=== PATIENT | female | born 1950 | race Caucasian/White ===

== ENCOUNTER 2018-07-11 03:22 | Emergency (ER) | payer MEDICARE ==
[~2018-07-11] VITALS: Ht 152.4 cm; Wt 77.2 kg
[~2018-07-11 03:22] MED LIST: GUAI120015 PO
[2018-07-11] MEDS ORDERED: methylPREDNISolone sod succ 125mg/2ml vial IV ONE (03:35)
[2018-07-11] MEDS ORDERED: ipratropium/albuterol 3ml nebule NEB ONE (03:35)
[2018-07-11 04:14] LABS: BASOPHILS # (AUTO) 0.1 X10'3 (0-0.2); BASOPHILS % (AUTO) 1.1 % (0-1); EOSINOPHILS # (AUTO) 0.9 X10'3 (0-0.9); EOSINOPHILS % (AUTO) 10.1 % (0-6); HEMATOCRIT 41.7 % (35.0-45.0); HEMOGLOBIN 13.7 g/dl (12.0-16.0); LYMPHOCYTES # (AUTO) 2.8 X10'3 (1.1-4.8); MEAN CORPUSCULAR HEMOGLOBIN 28.4 PG (27.0-31.0); MEAN CORPUSCULAR HGB CONC 32.8 g/dL (33.0-36.5); MEAN CORPUSCULAR VOLUME 86.5 FL (78-98); MONOCYTES # (AUTO) 0.7 X10'3 (0-0.9); MONOCYTES % (AUTO) 7.6 % (2-12); NEUTROPHILS # (AUTO) 4.8 X10'3 (1.8-7.7); NEUTROPHILS % (AUTO) 51.2 % (42-75); PLATELET COUNT 325 X10'3 (140-440); RED BLOOD COUNT 4.82 X10'6 (4.20-5.60); RED CELL DISTRIBUTION WIDTH 14.4 % (11.5-14.5); WHITE BLOOD COUNT 9.4 X10'3 (4.5-11.0)
[2018-07-11 04:26] LABS: ALANINE AMINOTRANSFERASE 18 U/L (12-78); ALBUMIN 3.5 G/DL (3.4-5.0); ALKALINE PHOSPHATASE 81 IU/L (46-116); ANION GAP 9 (8-16); ASPARTATE AMINO TRANSFERASE 20 U/L (10-37); BILIRUBIN,TOTAL 0.4 MG/DL (0.1-1.0); BLOOD UREA NITROGEN 17 MG/DL (7-18); BUN/CREATININE RATIO 24.3 (6.6-38.0); CALCIUM 9.1 MG/DL (8.5-10.1); CHLORIDE 106 MMOL/L (99-107); GLUCOSE 98 MG/DL (70-104); POTASSIUM 4.1 MMOL/L (3.5-5.1); SODIUM 140 MMOL/L (135-145); eGFR 84 ML/MIN
[2018-07-11 04:28] LABS: PARTIAL THROMBOPLASTIN TIME 28 SECONDS (22-32); PROTHROMBIN TIME 10.5 SECONDS (9.0-12.0)
[2018-07-11 04:35] LABS: TROPONIN I < 0.04 NG/ML (0.0-0.05)
[2018-07-11 04:52] VITALS: BP 132/77
[2018-07-11] MEDS ORDERED: LEVO750T21 PO (04:57)
[2018-07-11] MEDS ORDERED: PRED20TA PO (04:57)
== END 2018-07-11 05:16 | disposition home or self-care (01) ==
LOC: ER 03:22
DX: J44.1 Chronic obstructive pulmonary disease with (acute) exacerbation (principal); Z87.891 Personal history of nicotine dependence
CPT/HCPCS: 36415; 71045; 80053; 83880; 84484; 85025; 85610; 85730; 93005; 94640; 94760; 96374; 99284; J2930

== ENCOUNTER 2018-09-17 20:37 | Emergency (ER) | payer MEDICARE ==
[~2018-09-17] VITALS: Ht 152.4 cm; Wt 79.2 kg
[2018-09-17] MEDS ORDERED: methylPREDNISolone sod succ 125mg/2ml vial IV ONE (21:10)
[2018-09-17] MEDS ORDERED: ipratropium/albuterol 3ml nebule NEB ONE ×2 (21:10→22:30)
[2018-09-17 21:36] LABS: BASOPHILS % (AUTO) 0.5 % (0-1); EOSINOPHILS % (AUTO) 0 % (0-6); HEMATOCRIT 40.5 % (35.0-45.0); HEMOGLOBIN 13.8 g/dl (12.0-16.0); LYMPHOCYTES # (AUTO) 1.1 X10'3 (1.1-4.8); LYMPHOCYTES % (AUTO) 11.9 % (21-51); MEAN CORPUSCULAR HEMOGLOBIN 29.8 PG (27.0-31.0); MEAN CORPUSCULAR VOLUME 87.6 FL (78-98); MEAN PLATELET VOLUME 9.1 FL (7.4-10.4); MONOCYTES # (AUTO) 0.2 X10'3 (0-0.9); MONOCYTES % (AUTO) 2.2 % (2-12); NEUTROPHILS # (AUTO) 7.6 X10'3 (1.8-7.7); NEUTROPHILS % (AUTO) 85.4 % (42-75); PLATELET COUNT 238 X10'3 (140-440); RED BLOOD COUNT 4.62 X10'6 (4.20-5.60); RED CELL DISTRIBUTION WIDTH 15.4 % (11.5-14.5); WHITE BLOOD COUNT 8.9 X10'3 (4.5-11.0)
[2018-09-17 21:41] LABS: ALANINE AMINOTRANSFERASE 23 U/L (12-78); ALBUMIN 3.7 G/DL (3.4-5.0); ALBUMIN/GLOBULIN RATIO 1.1 (1.1-1.5); ALKALINE PHOSPHATASE 66 IU/L (46-116); ANION GAP 13 (8-16); ASPARTATE AMINO TRANSFERASE 16 U/L (10-37); BILIRUBIN,TOTAL 0.3 MG/DL (0.1-1.0); BLOOD UREA NITROGEN 14 MG/DL (7-18); BUN/CREATININE RATIO 19.2 (6.6-38.0); CALCIUM 9.2 MG/DL (8.5-10.1); CHLORIDE 107 MMOL/L (99-107); CREATININE 0.73 MG/DL (0.40-0.90); GLUCOSE 120 MG/DL (70-104); POTASSIUM 4.3 MMOL/L (3.5-5.1); SODIUM 140 MMOL/L (135-145); TOTAL CARBON DIOXIDE 19.8 MMOL/L (24-32); TOTAL PROTEIN 7.1 G/DL (6.4-8.2); eGFR 80 ML/MIN
[2018-09-17 21:42] LABS: PARTIAL THROMBOPLASTIN TIME 28 SECONDS (22-32)
[2018-09-17 23:35] VITALS: BP 171/103
[2018-09-19] MEDS ORDERED: GUAI400T77 PO (13:04)
[2018-09-19] MEDS ORDERED: NAPR-996 PO (13:04)
[2018-09-19] MEDS ORDERED: BUPR300T54 PO (13:04)
[2018-09-19] MEDS ORDERED: UMEC1DIS INH (13:04)
[2018-09-19] MEDS ORDERED: ASPI-1265 PO (13:04)
[2018-09-19] MEDS ORDERED: IPRA3AMP31 NEB (13:04)
[2018-09-19] MEDS ORDERED: CALC-3 PO (13:04)
[2018-09-19] MEDS ORDERED: ALEN70TA13 PO (13:04)
[2018-09-19] MEDS ORDERED: FLUT100D2 INH (13:04)
[2018-09-19] MEDS ORDERED: ATOR20TA66 PO (13:04)
== END 2018-09-17 23:42 | disposition home or self-care (01) ==
LOC: ER 20:38
DX: J44.1 Chronic obstructive pulmonary disease with (acute) exacerbation (principal); F17.210 Nicotine dependence, cigarettes, uncomplicated; Z79.899 Other long term (current) drug therapy; Z98.890 Other specified postprocedural states
CPT/HCPCS: 36415; 71045; 80053; 83880; 84484; 85025; 85610; 85730; 93005; 94640; 94760; 96374; 99284; J2930

== ENCOUNTER 2018-09-19 11:04 | Inpatient (IN) | payer MEDICARE | END 2018-09-21 17:15 | disposition home or self-care (01) | LOC: ER 11:04 → PCU 3S 23:31 → SUR 3N 09-20 13:45 | DX: J44.1 Chronic obstructive pulmonary disease with (acute) exacerbation (principal); J18.9 Pneumonia, unspecified organism; J44.0 Chronic obstructive pulmonary disease with (acute) lower respiratory infection; E78.5 Hyperlipidemia, unspecified; R01.1 Cardiac murmur, unspecified; M81.0 Age-related osteoporosis without current pathological fracture; F32.9 Major depressive disorder, single episode, unspecified; K29.70 Gastritis, unspecified, without bleeding ==

== ENCOUNTER 2019-01-22 15:40 | Emergency (ER) | payer MEDICARE ==
[~2019-01-22] VITALS: Ht 152.4 cm; Wt 86.4 kg
[~2019-01-22 15:40] MED LIST changes: +ALEN70TA13 PO; +ATOR20TA66 PO; +AZI25OT PO; +BUPR300T54 PO; +CALC-3 PO; +FLUT100D2 INH; +FURO20TA4 PO; -GUAI120015 PO; +GUAI400T77 PO; +UMEC1DIS INH
--- NOTE | 2019-01-22 16:31 | NUR ---
awaiting ed MD.
[2019-01-22] MEDS ORDERED: ipratropium/albuterol 3ml nebule NEB ONE (16:55)
[2019-01-22 17:04] VITALS: BP 125/74
[2019-01-22] MEDS ORDERED: PRED20TA PO (17:27)
== END 2019-01-22 17:39 | disposition home or self-care (01) ==
LOC: ER 15:41
DX: J44.9 Chronic obstructive pulmonary disease, unspecified (principal); Z98.890 Other specified postprocedural states; Z79.2 Long term (current) use of antibiotics; Z79.899 Other long term (current) drug therapy
CPT/HCPCS: 71046; 94640; 94760; 99283

== ENCOUNTER 2024-10-14 23:49 | Emergency (ER) | payer MEDICARE, MEDICAID ==
[~2024-10-14] VITALS: Ht 152.4 cm; Wt 86.0 kg
[~2024-10-14 23:49] MED LIST changes: -ALEN70TA13 PO; +ALEN70TA80 PO; +BUPR-557 PO; -BUPR300T54 PO; -GUAI400T77 PO; +GUAI400T92 PO
[2024-10-15] MEDS: diphenhydrAMINE 25mg capsule PO ONE ×2 (00:10→01:49)
[2024-10-15] MEDS: dexamethasone sod phosphate 10mg/ml inj IM STA (00:51)
[2024-10-15] MEDS: famotidine 20mg tablet PO ONE (00:51)
--- NOTE | 2024-10-15 01:21 | Physician Documentation ---
History of Present Illness ~ Chief Complaint: Rash Stated Complaint: RASH Time Seen by MD: 01:20 Primary Medical Doctor: [facility] HPI 73-year-old female presenting with a rash. She tells me that earlier today she developed a rash. It is itchy and red, and on her trunk and extremities. She has been taking amoxicillin for strep throat for the past 1 week. No other definite new exposures including new soaps, lotions or foods. No allergies. No treatments tried at home. She denies any swelling or lesions in her mouth. No difficulty breathing or wheezing. No difficulty swallowing, nausea vomiting or diarrhea. No lightheadedness or syncope. Medication Reconciliation Allergies: Coded Allergies: amoxicillin (Verified Allergy, Mild, RASH, 10/15/24) Scheduled Alendronate Sodium (Alendronate Sodium), 1 TABLET PO Q7D, (Reported) Atorvastatin Calcium (Atorvastatin Calcium), 1 TAB PO HS, (Reported) Azithromycin (Zithromax), 500 MG PO Q24H Azithromycin (Azithromycin), 1 TAB PO UD Bupropion HCl (Bupropion Xl), 1 TAB PO DAILY, (Reported) Calcium Carbonate/Vitamin D3 (Oyster Shell 500 Mg + Vit D Tb), 1 EACH PO DAILY, (Reported) Fluticasone Propionate (Flovent 100 Mcg Diskus), 1 PUFFS INH Q12H, (Reported) Furosemide (Furosemide), 40 MG PO DAILY Umeclidinium Brm/Vilanterol Tr (Anoro Ellipta 62.5-25 Mcg INH), 1 PUFF INH DAILY, (Reported) Scheduled PRN Guaifenesin (Guaifenesin), 400 MG PO Q4HPRN PRN for cough, (Reported) Past Medical History Past Medical History: COPD, Emphysema, Pneumonia Past Surgical History: orthopedic surgeries Alcohol Use: None Drug Use: none Lives with: Family Lives In: Home Occupation: employed Review of Systems Gastrointestinal: Denies: nausea, vomiting Neurological: Denies: dizziness Integumentary: Reports: rash Physical Exam Vital Signs: Temperature: 97.1, Heart Rate: 78, Respiratory Rate: 16, BP: 120/62, Pulse Oximetry: 97, Weight: 86.000 Oxygen Flow Rate: 0 Physical Exam General: This is a very pleasant older woman sitting calmly in bed, not in distress HEENT: Atraumatic, oropharynx is moist, no intraoral lesions, posterior oropharynx without unilateral swelling, erythema or white exudate Heart: Regular rate and rhythm, normal-appearing peripheral perfusion Lungs: Clear breath sounds bilateral, normal work of breathing, no wheezing Neuro: Alert and oriented, no focal deficits Psychiatric: Calm and cooperative with exam Skin: The patient has a diffuse erythematous raised rash which is blanching and itchy. It does not involve the palms or soles, no intraoral lesions. No blistering. Progress Results/Orders Results/Orders Completed Orders - ALEKSANDER CAMACHO MD Diphenhydramine Capsule (Benadryl Capsul (10/15/24 00:10) Dexamethasone Inj (Decadron 10mg/Ml Inj) (10/15/24 00:43) Famotidine Tablet (Pepcid Tablet) (10/15/24 00:45) Diphenhydramine Capsule (Benadryl Capsul (10/15/24 01:35) Medications Received in ER Medications (Trade) Dose Ordered Sig/Steven Route PRN Reason Start Time Stop Time Status Last Admin Dose Admin (Benadryl capsule) 25 mg ONCE ONCE PO 10/15/24 00:10 10/15/24 00:11 DC 10/15/24 00:10 25 MG (Decadron 10mg/ ml inj) 10 mg ONCE STAT IM 10/15/24 00:43 10/15/24 00:46 DC 10/15/24 00:51 10 MG (Pepcid tablet) 20 mg ONCE ONCE PO 10/15/24 00:45 10/15/24 00:46 DC 10/15/24 00:51 20 MG (Benadryl capsule) 25 mg ONCE ONCE PO 10/15/24 01:35 10/15/24 01:46 DC 10/15/24 01:49 25 MG Vital Signs 10/14/24 10/15/24 23:59 01:54 Temp 97.1 97.1 Pulse 78 74 Resp 16 18 B/P (MAP) 120/62 121/60 Pulse Ox 97 98 O2 Flow Rate 0 Medical Decision Making Differential Dx:Considerations: Include: Atopic dermatitis, Drug reaction, Urticaria, Viral exanthema Additional Comment The patient presents with a rash, which seems most consistent with hives. The only new exposures amoxicillin over the past 1 week. On exam she does not have findings consistent with strep throat at this time. She was given symptomatic treatment with antihistamines and steroids. This did seem to help with her rash and itching. She does not have findings to suggest a dangerous drug rash, anaphylaxis, Martins-Herbie syndrome, or other emergency. At this time I feel she is safe for discharge home with ongoing antihistamine use. She will stop taking the amoxicillin. She was given a prescription for azithromycin to complete her treatment. She will contact her primary doctor tomorrow for further recommendations. Return precautions given for worsening symptoms. Departure Time of Disposition: :34 Disposition: 01 HOME / SELF CARE / HOMELESS Impression: Primary Impression: Allergic urticaria Condition: Improved Discharge Instructions: Hives Referrals: NO PRIMARY CARE PROVIDER (PCP) Prescriptions Azithromycin (Azithromycin) 250 Mg Tablet 1 TAB PO UD for 5 Days, #6 TAB 2 the first day followed by 1 for days 2-5 Prov: ALEKSANDER CAMACHO MD 10/15/24 Education Educated: Patient Educated regarding: diagnosis, treatment Signature Scribe Signature: milla Attestation: ALEKSANDER Miller MD October 15, 2024 01:21
[2024-10-15] MEDS ORDERED: AZIT250T82 PO (01:37)
[2024-10-15 01:54] VITALS: BP 121/60; PULSE 74; RESP 18; TEMP 97.1; O2SAT 98
== END 2024-10-15 01:57 | disposition home or self-care (01) ==
LOC: ER 23:50
DX: L50.0 Allergic urticaria (principal); J43.9 Emphysema, unspecified; Z88.0 Allergy status to penicillin; Z88.8 Allergy status to other drugs, medicaments and biological substances
CPT/HCPCS: 96372; 99284; J1100; Q0163